=== PATIENT | male | born 1985 | race Hispanic/Latino ===

== ENCOUNTER 2024-12-21 13:43 | Emergency (ER) | payer OTHER, SELFPAY ==
--- NOTE | 2024-12-21 13:43 | EKG12_ITS ---
Test Reason : CP Blood Pressure : */* mmHG Vent. Rate : 59 BPM Atrial Rate : 59 BPM P-R Int : 184 ms QRS Dur : 92 ms QT Int : 414 ms P-R-T Axes : 62 33 16 degrees QTcB Int : 409 ms Sinus bradycardia Otherwise normal ECG Confirmed by Matt Garcia ([id number]), editor managing newspaper FABIÁN CUMMINGS ([id number]) on 12/24/2024 5:50:09 AM Referred By: TB/ER Confirmed By: Matt Garcia
[2024-12-21 13:44] VITALS: BP 159/70; PULSE 56; RESP 16; TEMP 36.3; O2SAT 100; BMI 27.3
--- NOTE | 2024-12-21 14:08 | ED.VIS.CHEST ---
HPI History of Present Illness Chief Complaint: Chest Pain Narrative Narrative: Patient is a 39-year-old male presenting to the emergency department for chest pain. Patient has no significant past medical history. Denies history of hypertension, hyperlipidemia, diabetes. Denies any family history of sudden cardiac . [place] and started having midsternal chest pain with some mild shortness of breath. Endorses some lightheadedness and diaphoresis as well. Denies any nausea or vomiting. Denies abdominal pain. Denies any focal numbness or weakness in his extremities he went to the [facility] and they recommended that he come here for evaluation. EMS gave nitro and aspirin. States that his symptoms are gone now. States that these episodes have been happening over the past month, this is the third time that has happened. He has a stress test, echo and Holter monitor scheduled to be done outpatient in the next few weeks. Denies history of DVT or PE. Denies any recent travel, hospitalizations or surgeries. [facility] Medical History no medical history Home Medications ?Medication ?Instructions ?Recorded ?Last Taken ?Type NK 12/21/24 Unknown History Allergy/AdvReac Type Severity Reaction Status Date / Time Penicillins (PCN) Allergy SOB Verified 12/21/24 13:45 Family History no significant family his Surgical History no surgical history Social History Smoking Status: Never smoker ROS ROS ED ROS Narrative see HPI EXAM Physical Exam Narrative Exam Narrative: Vital signs: Reviewed General: Alert and oriented. No acute distress HEENT: Head is normocephalic and atraumatic, sinuses nontender, pupils equal round and reactive. Nares are patent. Oropharynx and throat exams normal. Neck: Supple without lymphadenopathy nontender Cardiovascular: Regular rate and rhythm, no murmurs. No rubs or gallops. Normal S1 and S2. Radial pulses and DP/PT pulses are intact and symmetric throughout. Respiratory: Clear to auscultation bilaterally. No wheezes, rales, rhonchi Chest: Chest wall is atraumatic and nontender to palpation. No crepitus. Abdominal: Soft and nontender. Normal bowel sounds. No guarding or rebound. Nonsurgical abdomen Extremities: No tenderness. No bruising. Normal range of motion. Normal sensation. Skin: No rash or redness. Neurological: Cranial nerves II through XII are grossly intact. Normal strength and sensation. Normal cerebellar function The rest of the physical exam is unremarkable Const Vital Signs: 12/21/24 13:44 12/21/24 13:58 12/21/24 15:44 Temperature 97.4 F L Temperature Source Oral Pulse Rate 56 L 53 L Respiratory Rate 16 12 Respiratory Effort Normal Non-Labored Blood Pressure 159/70 H 133/80 H Blood Pressure Mean 99 97 Pulse Ox 100 100 Oxygen Delivery Method Room Air Room Air 12/21/24 15:55 Temperature 97.4 F L Temperature Source Pulse Rate 53 L Respiratory Rate 12 Respiratory Effort Blood Pressure 133/80 H Blood Pressure Mean 97 Pulse Ox 100 Oxygen Delivery Method Heart Score History: Moderately Suspicious ECG: Normal Age: </= 45 years Risk Factors: No Risk Factors Troponin: </= Normal Limit Score: 1 MDM MDM MDM Narrative Medical decision making narrative: Patient is a 39-year-old male presenting to the emergency department for chest pain. Patient was seen and examined. Vitals are stable. Patient resting in bed comfortably no acute distress. Differential includes but is not limited to: ACS, dysrhythmia, less likely PE, pneumonia, pneumothorax Low suspicion for PE. PERC negative. EKG shows sinus bradycardia at a rate of 56 with no ischemic changes. No ST elevation or depression. No abnormal T wave versions. No dysrhythmia. CBC with no leukocytosis and a normal hemoglobin. BMP with no significant abnormalities. Magnesium within normal limits. TSH within normal limits. Troponin reflex less than 6. Chest x-ray reviewed by myself and there is no wide mediastinum, opacity, pneumothorax noted. Radiology read with no acute radiographic abnormality. Low HEART score at 1. Patient states that he is following with his primary care doctor, he lives about an hour away. He has a stress test, echo and Holter monitor scheduled to be done soon. Patient stable for discharge. Patient discharged from the Emergency Department. I do not feel that the patient's evaluation reveals any acute reason for admission at this time. I instructed them to either follow-up with their primary care physician or promptly return to the Emergency Department for reevaluation should symptoms worsen or new symptoms develop. I explained what symptoms would indicate the need to return to the emergency department. Shared decision making was used. The patient voiced understanding of the treatment plan and is agreeable with it. Clinical impression Chest pain History & Record Review Discussion w/independent historian: Patient Lab Data Attestation: I reviewed the patient's lab results. Labs: Laboratory Results - last 24 hr 12/21/24 12/21/24 13:20 15:15 WBC 7.1 RBC 4.96 Hgb 14.0 Hct 39.5 L MCV 79.6 L MCH 28.2 MCHC 35.4 RDW Std Deviation 34.9 L RDW Coeff of Morris 12.3 Plt Count 370 MPV 9.6 Neut % (Auto) Not Reportable Absolute Neuts (auto) 3.3 Absolute Lymphs (auto) 1.98 Total Counted 100 Neutrophils % (Manual) 47 Lymphocytes % (Manual) 28 Monocytes % (Manual) 12 H Eosinophils % (Manual) 6 H Metamyelocytes % 5 H Myelocytes % 2 H Diff Path Review May foll Platelet Estimate ADEQUATE RBC Morphology NORM C+C Sodium 140 Potassium 3.5 Chloride 101 Carbon Dioxide 24.1 Anion Gap 14 BUN 10 Creatinine 0.82 Estim Creat Clear Calc 131.37 Est GFR (MDRD) Non-Af 116 BUN/Creatinine Ratio 12.7 Glucose 96 Calcium 9.9 Magnesium 2.2 Troponin T High Sens < 6 Troponin T Hi Sens 2 Hr < 6 TSH 0.885 Radiography Chest X-Ray - ED: 2 View, Read by ED Physician, Normal, No Acute Disease and No Infiltrates Diagnostic Testing: Clinical Impression(s) from Imaging Studies Chest X-Ray 12/21/24 14:15 IMPRESSION: No radiographic evidence for an acute cardiothoracic process. Reading Location: [facility] Discharge Plan Triage Chief Complaint: Chest Pain ED Provider: Debra Guajardo Dx/Rx/DC Orders Clinical Impression: Chest pain of uncertain etiology Instructions: ED Chest Pain, Uncertain Cause Prescriptions: No Action NK Primary Care Provider: Care Physician,No Primary Referrals: Your primary care doctor [Other] - 2 Days Care Physician,No Primary [Primary Care Provider] - Activity Restrictions/Additional Instructions: Your evaluation in the Emergency Department did not reveal any acute reason for admission. However, I want to emphasize that you may be early in the course of a disease process or illness even if it is not present. For this reason you should follow-up within 24 hours for reevaluation with either your primary care physician or if necessary back here in the Emergency Department. You should return to the Emergency Department immediately if your symptoms worsen or new symptoms develop. Print Language: Persian Disposition Disposition: Home, Self Care Discharge Date/Time: 12/21/24 16:04
--- NOTE | 2024-12-21 14:15 | RAD_ITS ---
PROCEDURE: CHEST PA AND LATERAL 12/21/2024 REASON FOR EXAM: CHEST PAIN TECHNIQUE: Procedure Code: RADCXR Modality: DX Procedure: CHEST PA AND LATERAL COMPARISON: None FINDINGS: Lungs: The lungs are symmetrically expanded. Lung volumes are within normal limits. There is no consolidation. There is no peribronchial thickening. There is no pulmonary vascular redistribution. Pleura: No significant pleural effusion seen. There is no evidence of pneumothorax. Mediastinum: There is no mediastinal widening or mediastinal shift. Heart: The cardiac silhouette is not enlarged. Abena: The pulmonary abena are not enlarged or retracted. Osseous: No acute fracture is seen. RAD/Chest PA and Lateral IMPRESSION: No radiographic evidence for an acute cardiothoracic process. Reading Location: [id number]
[2024-12-21 14:28] LABS: Hematocrit 39.5 % (40-54); Hemoglobin 14.0 g/dL (13.0-16.5); Mean Corp Hgb Conc 35.4 g/dL (32-36); Mean Corpuscular Volume 79.6 fL (80-94); Mean Platelet Vol. 9.6 fl (6.2-12.0); POSITIVE COUNT YES; POSITIVE MORPHOLOGY YES; Platelet Count 370 K/mm3 (150-450); RBC Distribution Width CV 12.3 % (11.6-14.6); RBC Distribution Width SD 34.9 fl (35.1-43.9); Red Blood Count 4.96 M/mm3 (4.6-6.2); White Blood Count 7.1 K/mm3 (4.4-11.0)
[2024-12-21 14:35] LABS: Differential Indicated MANUAL DIFF
[2024-12-21 14:55] LABS: Anion Gap 14 (5-15); BUN 10 mg/dL (4-19); BUN/Creat Ratio 12.7 RATIO (10-20); Calcium,Total 9.9 mg/dL (7.6-11.0); Carbon Dioxide 24.1 mmol/L (21.0-32.0); Chloride 101 mmol/L (98-108); Estimated Creatinine Clearance 131.37 ml/min (50-250); Glucose 96 mg/dL (70-99); Magnesium 2.2 mg/dL (1.5-2.2); Potassium 3.5 mmol/L (3.3-5.1); Troponin T High Sensitivity < 6 ng/L (<=22)
[2024-12-21 15:08] LABS: Neutrophil-Segmented 47 % (47-70); Total Cells Counted 100 (MANUAL DIFF)
[2024-12-21 15:10] LABS: Red Cell Morphology NORM C+C NORMAL (NORM C&C)
[2024-12-21 15:42] LABS: Troponin T High Sens 2 HR < 6 ng/L (<=22)
[2024-12-21 15:44] VITALS: BP 133/80; PULSE 53; RESP 12; O2SAT 100
[2024-12-21 15:55] VITALS: BP 133/80; PULSE 53; RESP 12; TEMP 36.3; O2SAT 100
== END 2024-12-21 16:04 | disposition home or self-care (01) ==
PROVIDERS: Emergency Provider Student in an Organized Health Care Education/Training Program; Visit Provider Student in an Organized Health Care Education/Training Program
DX: R07.89 Other chest pain (principal); R06.02 Shortness of breath; R42 Dizziness and giddiness; R61 Generalized hyperhidrosis
CPT/HCPCS: 71046; 80048; 83735; 84443; 84484; 85025; 93005; 99285; A4216